=== PATIENT | male | born 1985 ===

== ENCOUNTER 2020-04-05 20:18 | Outpatient (CLI) | payer MEDICAID | END 2020-04-05 20:19 | disposition home or self-care (01) | LOC: COV 20:18 | PROVIDERS: ATTEND Family Medicine | DX: R50.9 Fever, unspecified (principal); R05 Cough; R06.02 Shortness of breath; M79.10 Myalgia, unspecified site; J02.9 Acute pharyngitis, unspecified; R53.83 Other fatigue; R09.81 Nasal congestion; Z20.828 Contact with and (suspected) exposure to other viral communicable diseases ==